=== PATIENT | male | born 1965 | race Caucasian/White ===

== ENCOUNTER 2024-08-19 08:19 | Outpatient (CLI) | payer MEDICAID, SELFPAY | END 2024-08-19 08:20 | disposition home or self-care (01) | PROVIDERS: PCP Family Medicine; Visit Provider Family Medicine | DX: R11.0 Nausea (principal); Z13.6 Encounter for screening for cardiovascular disorders; Z12.5 Encounter for screening for malignant neoplasm of prostate | CPT/HCPCS: 80053; 80061; 83516; G0103 ==

== ENCOUNTER 2024-09-09 06:38 | Outpatient (CLI) | payer MEDICAID, SELFPAY ==
--- NOTE | 2024-09-09 08:00 | P.ANES_ITS ---
Anesthesia Charges Start Date/Time Anesthesia Start Date: 09/09/24 Anesthesia Start Time: 07:15 Stop Date/Time Anesthesia Stop Date: 09/09/24 Anesthesia Stop Time: 07:58 Coding CPT Codes CPT Codes: KENDALL LWR INTST NDSC NOS - [id number] ([id number]) P2 - PATIENT W/MILD SYST DISEASE, QK - MEDICAL BILLING SPECIALIST 2-4 CNCRNT ANES PROC, QX - DISTRICT COURT JUSTICE SVC W/ MD MED DIRECTION
--- NOTE | 2024-09-09 08:00 | W.ANESCHARGE ---
Anesthesia Charges Start Date/Time Anesthesia Start Date: 09/09/24 Anesthesia Start Time: 07:15 Stop Date/Time Anesthesia Stop Date: 09/09/24 Anesthesia Stop Time: 07:58 Coding CPT Codes CPT Codes: KENDALL LWR INTST NDSC NOS - [id number] ([id number]) P2 - PATIENT W/MILD SYST DISEASE, QK - DIRECTOR OF STATE 2-4 CNCRNT ANES PROC, QX - ADULT EDUCATION PROFESSIONAL SVC W/ MD MED DIRECTION
--- NOTE | 2024-09-09 08:12 | P.ANES_ITS ---
Anesthesia Charges Start Date/Time Anesthesia Start Date: 09/09/24 Anesthesia Start Time: 07:15 Stop Date/Time Anesthesia Stop Date: 09/09/24 Anesthesia Stop Time: 07:58 Coding CPT Codes CPT Codes: KENDALL LWR INTST NDSC NOS - [id number] ([id number]) QK - PAINT BRUSH MAKER 2-4 CNCRNT KENDALL PROC, QX - FRUIT PRESERVER SVC W/ MD MED DIRECTION, P2 - PATIENT W/MILD SYST DISEASE
--- NOTE | 2024-09-09 08:12 | W.ANESCHARGE ---
Anesthesia Charges Start Date/Time Anesthesia Start Date: 09/09/24 Anesthesia Start Time: 07:15 Stop Date/Time Anesthesia Stop Date: 09/09/24 Anesthesia Stop Time: 07:58 Coding CPT Codes CPT Codes: KENDALL LWR INTST NDSC NOS - [id number] ([id number]) QK - EDGE SETTER 2-4 CNCRNT KENDALL PROC, QX - ARTISTIC ASSOCIATE SVC W/ MD MED DIRECTION, P2 - PATIENT W/MILD SYST DISEASE
== END 2024-09-09 06:39 | disposition home or self-care (01) ==
PROVIDERS: PCP Family Medicine; Visit Provider Surgery
DX: Z12.11 Encounter for screening for malignant neoplasm of colon (principal); D12.0 Benign neoplasm of cecum; D12.3 Benign neoplasm of transverse colon; D12.5 Benign neoplasm of sigmoid colon; D12.8 Benign neoplasm of rectum
CPT/HCPCS: 00811; 00812; 45385; 88305; J2704

== ENCOUNTER 2025-01-23 07:06 | Outpatient (CLI) | payer MEDICAID, SELFPAY ==
--- NOTE | 2025-01-23 07:15 | CRLHL7_ITS ---
For Patients: As a result of the Century Cures Act, medical imaging exams and procedure reports are released immediately into your electronic medical record. You may view this report before your referring provider. If you have questions, please contact your health care provider. EXAM: MRI OF THE RIGHT FOOT, WITHOUT CONTRAST CLINICAL INDICATION: Midfoot plantar mass. PRIOR SURGERY: None. COMPARISON PLAIN FILMS: 12 January 2025. COMPARISON CROSS-SECTIONAL IMAGING STUDIES: None. TECHNICAL: Axial, sagittal and coronal T1, PD and STIR images. Images centered on the midfoot. FINDINGS: OSSEOUS STRUCTURES: Prominent moderately dense STIR and dusky T1 marrow edema with potential subtle trabecular fracturing in the lateral cuboid. No transcortical extension. 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 JOINT SPACES: Mild focal degenerative arthrosis changes between 1st and 2nd cuneiform with some patchy subchondral edema. Small cysts. Small focus of edema sclerosis and a tiny cyst in the mid talar facet to the posterior subtalar joint. LIGAMENTS: The Lisfranc ligament is intact. TMT joint alignment is maintained. TENDONS AND MUSCLES: The flexor and extensor tendons are intact. The distal peroneus longus and brevis tendons are intact. No muscle atrophy or edema. SOFT TISSUES: Heterogeneous intermediate to low T1 and low to nearly high STIR signal fusiform mass of the plantar fascia under the MRI marker in the medial midfoot. Greatest short axis diameter 32 x 17 mm with proximal to distal length estimated at 34 mm. Lateral bundle looks unremarkable. Plantar fascia is not thickened. No other mass. IMPRESSION: 1. 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 2. Likely high-grade stress injury of the lateral cuboid. 3. Minor focal arthrosis between 2nd and 3rd cuneiforms. 4. Mild accessory navicular syndrome. 5. Minor focal arthrosis versus osteochondral injury mid visualized posterior subtalar joint. Dictated by Edmund Coles MD @ 01/23/2025 2:20:49 PM (Electronically Signed)
== END 2025-01-23 07:07 | disposition home or self-care (01) ==
LOC: MRI 07:07
PROVIDERS: PCP Family Medicine; Visit Provider Podiatrist
DX: M79.671 Pain in right foot (principal); D21.21 Benign neoplasm of connective and other soft tissue of right lower limb, including hip; M19.071 Primary osteoarthritis, right ankle and foot
CPT/HCPCS: 73718